=== PATIENT | female | born 1935 | race Caucasian/White ===

== ENCOUNTER 2020-06-08 08:18 | Outpatient (CLI) | payer MEDICARE, OTHER ==
[2020-06-09 12:29] LABS: SARS-CoV-2 MS2 Positive; SARS-CoV-2 N Gene Negative; SARS-CoV-2 S Gene Negative; SARS-CoV-2 by NAA Not Detected (NotDetected); SARS-CoV-2 orf1ab Negative
== END 2020-06-08 08:19 | disposition home or self-care (01) ==
LOC: LABBT 08:18
PROVIDERS: ATTEND Specialist
DX: Z01.812 Encounter for preprocedural laboratory examination (principal); Z11.59 Encounter for screening for other viral diseases; M54.16 Radiculopathy, lumbar region; G89.29 Other chronic pain
CPT/HCPCS: 87635; U0003

== ENCOUNTER 2020-06-12 11:43 | Day surgery (SDC) | payer MEDICARE ==
[2020-06-06 12:57] VITALS: BMI 22.0
[2020-06-12] MEDS ORDERED: CEFAZOLIN 1 GM VIAL ONE (12:28)
[2020-06-12] MEDS ORDERED: Sodium Chloride 0.9% 100 ML ONE (12:28)
[2020-06-12] MEDS ORDERED: Propofol 1,000 MG/100 ML VIAL IV ONE (12:36)
[2020-06-12] MEDS ORDERED: Ketamine 50 MG/ML (10ML VIAL) ONE (12:36)
[2020-06-12] MEDS ORDERED: Fentanyl 100 MCG/2 ML VIAL ONE (12:36)
[2020-06-12] MEDS ORDERED: EPINEPHrine 1 MG/ML AMP ONE (12:40)
[2020-06-12] MEDS ORDERED: Bupivacaine PF 0.5% 30 ML VIAL ONE (12:40)
--- NOTE | 2020-06-12 15:12 | RAD ---
Single lateral intraoperative C-arm view of the thoracic spine INDICATION: Dorsal column testicular placement FINDINGS: Single submitted image demonstrates column stimulator lead projecting centrally overlying t he mid to lower thoracic spine. Total fluoroscopic time was 44 seconds. Total exposure was 3.75 mGy. IMPRESSION: Intraoperative C-arm radiograph demonstrating placement of a dorsal column stimulator.
--- NOTE | 2020-06-12 23:39 | OP ---
DATE OF PROCEDURE: 06/12/2020 PREOPERATIVE DIAGNOSES: 1. Post-laminectomy syndrome. 2. Chronic pain syndrome. 3. Lumbar radiculopathy. POSTOPERATIVE DIAGNOSES: 1. Post-laminectomy syndrome. 2. Chronic pain syndrome. 3. Lumbar radiculopathy. PROCEDURE PERFORMED: 1. Spinal cord stimulator generator implant. 2. Spinal cord stimulator lead implant x2. 3. Programming. 4. Fluoroscopy. ESTIMATED BLOOD LOSS: 10 mL. DESCRIPTION OF PROCEDURE: The patient was taken to the procedure room and placed prone on the procedure room table. A time-out was performed. The back was prepped with DuraPrep and sterile drapes were applied. We anesthetized the skin with 0.5% Marcaine with epinephrine. A 14-gauge supplied Touhy needle was used in a left paramedian technique to engage in the T12-L1 ligament. We used loss of resistance to air to achieve access to the epidural space. We threaded an 8 contact Medtronic lead up the midline dorsal epidural space to the bottom of T7. We then performed the exact same technique with a left paramedian approach at the T11-12 level. We threaded this lead up to the bottom of T8. The midline electrode was at the top of T9 and the right electrode was at the top of T8. Images were saved. The patient was woken up and stimulation was performed and the patient felt paresthesia in all pain areas. We then anesthetized the area around the needles. I made a vertical incision and blunt dissected this down to fascia. The needles were removed and the leads were then brought through to the newly made incision. Anchors were placed over these leads and they were anchored down to fascia. A 2-0 silk suture was used to fix the anchors to the fascial layer and the anchors were over the lead. We pulled on the leads under continuous fluoro and they would not move. We anesthetized the right upper buttock area horizontally. We made an incision and blunt dissected this down the Madisyn's fascia. We then dissected inferiorly to make a pocket. We used tunneling device to make a tunnel between the 2 incision points. The leads were placed through this tunneling device and taken to the battery pocket area. They were then secured to the battery with the torque wrench. Impedances were checked which were all good. The battery was placed inside the pocket easily. We then approximated the fascial layer with 2-0 Vicryl sutures in a horizontal mattress approach for the deep fascia and then for the superficial fascia, we used simple interrupted sutures of 2-0 Vicryl. For the skin layer, we used a subcuticular stitch consisting of a 3-0 Rapide. We then used Dermabond as an occlusive dressing. Once that was dry, we put a sterile 4 x 4 on the incision site and affixed this to the skin with Medipore tape. The patient was taken to Day Stay under stable condition. No complications were noted at this time. Job ID: [id number]
== END 2020-06-12 16:40 | disposition home or self-care (01) ==
LOC: SDC 11:43
PROVIDERS: ATTEND Specialist
PROC: 0JH70DZ Insertion of Multiple Array Stimulator Generator into Back Subcutaneous Tissue and Fascia, Open Approach (ICD-10-PCS; principal; 2020-06-12)
PROC: 00HU3MZ Insertion of Neurostimulator Lead into Spinal Canal, Percutaneous Approach (ICD-10-PCS; 2020-06-12)
DX: M96.1 Postlaminectomy syndrome, not elsewhere classified (principal); G89.4 Chronic pain syndrome; M51.16 Intervertebral disc disorders with radiculopathy, lumbar region; M47.26 Other spondylosis with radiculopathy, lumbar region; M47.817 Spondylosis without myelopathy or radiculopathy, lumbosacral region; M43.16 Spondylolisthesis, lumbar region; M70.62 Trochanteric bursitis, left hip; I10 Essential (primary) hypertension; E78.00 Pure hypercholesterolemia, unspecified; Z86.73 Personal history of transient ischemic attack (TIA), and cerebral infarction without residual deficits; Z79.02 Long term (current) use of antithrombotics/antiplatelets; Z79.899 Other long term (current) drug therapy
CPT/HCPCS: 72020; 76000; 93005; 93010; C1778; C1787; J0171; J0690; J2704; J3010; J3370; J3490; L8679; L8689; S0020